=== PATIENT | female | born 1945 | race Caucasian/White ===

== ENCOUNTER 2023-04-02 06:11 | Inpatient (IN) | payer OTHER, BC ==
[~2023-04-02] VITALS: Ht 157.5 cm; Wt 72.6 kg
[2023-04-02 06:23] VITALS: BP_SYST 147; PULSE 74; RESP 16; TEMP 97.9; O2SAT 97
[2023-04-02 07:22] LABS: BASOPHILS # (AUTO) 0.1 K/uL (0.0-0.2); BASOPHILS % (AUTO) 0.6 % (0.0-2.0); EOSINOPHILS # (AUTO) 0.1 K/uL (0.0-0.4); EOSINOPHILS % (AUTO) 0.8 % (0.0-4.0); HEMATOCRIT 36.4 % (36-48); HEMOGLOBIN 12.6 g/dL (12.0-16.0); LYMPHOCYTES # (AUTO) 0.7 K/uL (1.0-5.5); LYMPHOCYTES % (AUTO) 6.6 % (20.5-51.5); MEAN CORPUSCULAR HEMOGLOBIN 33 pg (27-31); MEAN CORPUSCULAR HGB CONC 35 % (32-36); MEAN CORPUSCULAR VOLUME 96 fL (79.0-98.0); MONOCYTES # (AUTO) 0.7 K/uL (0.0-1.0); NEUTROPHILS # (AUTO) 8.5 K/uL (1.8-7.7); PLATELET COUNT (AUTO) 295 K/uL (130-430); RED BLOOD CELL COUNT(AUTO) 3.78 MIL/uL (4.2-6.2); RED CELL DISTRIBUTION WIDTH 13.4 % (9.0-15.0); WHITE BLOOD COUNT (AUTO) 10.1 K/uL (4.8-10.8)
[2023-04-02 07:34] LABS: ANION GAP 11 (5-15); CALCIUM 8.6 mg/dL (8.4-11.0); CARBON DIOXIDE 23 mmol/L (23-29); CHLORIDE 99 mmol/L (98-107); CREATININE 0.88 mg/dL (0.55-1.30); GLUCOSE 118 mg/dL (74-106); POTASSIUM 3.9 mmol/L (3.5-5.1); SODIUM SERUM 133 mmol/L (136-145); UREA NITROGEN, BLOOD 11 mg/dL (8-21)
[2023-04-02 07:38] LABS: ALANINE AMINOTRANSFERASE 10 U/L (12-78); ALBUMIN 3.3 g/dL (3.4-4.8); ASPARTATE AMINOTRANSFERASE 12 U/L (10-37); TOTAL BILIRUBIN 0.7 mg/dL (0.0-1.0); TOTAL PROTEIN, SERUM 7.6 g/dL (6.4-8.3)
[2023-04-02 08:11] LABS: BILIRUBIN,URINE NEGATIVE (NEGATIVE); BLOOD, URINE NEGATIVE (NEGATIVE); CLARITY/URINE CLEAR (CLEAR); COLOR,URINE YELLOW (YELLOW); GLUCOSE,URINE NEGATIVE (NEGATIVE); KETONES,URINE TRACE (NEGATIVE); LEUKOCYTE ESTERASE ,URINE NEGATIVE (NEGATIVE); NITRITE, URINE NEGATIVE (NEGATIVE); PH,URINE 5.5 (5.0-8.0); PROTEIN URINE NEGATIVE (NEGATIVE); UROBILINOGEN,URINE 0.2 (0.2-1.0)
[2023-04-02] MEDS ORDERED: NACL 0.9% 1,000 ML IV ONE (08:15)
[2023-04-02] MEDS ORDERED: MORPHINE 4 MG INJ. 4 MG/ML VIAL IVP ONE (08:15)
[2023-04-02] MEDS ORDERED: ONDANSETRON HCL 4 MG/2 ML VIAL IVP ONE (08:15)
[2023-04-02] MEDS ORDERED: metroNIDAZOLE 500 mg/NS 100 ML IV ONE ×2 (10:15)
[2023-04-02] MEDS: D5/0.45 NS 1,000 ML IV SCH ×2 (11:07→20:45)
[2023-04-02] MEDS ORDERED: PIPERACILLIN/TAZOBACTAM 3.375 GM/VIAL (ZOSYN) IV ONE (11:16)
[2023-04-02] MEDS ORDERED: PIPERACILLIN/TAZO 3.375 GM in NS 50 ML IV SCH (12:00)
[2023-04-02] MEDS ORDERED: FOLIC ACID 1 MG, THIAMINE HCL 100 MG, MAGNESIUM SULFATE 1 GM, MVI 10 ML in NACL 0.9% 1,... IV SCH (12:45)
[2023-04-02] MEDS ORDERED: ACETAMINOPHEN 325 MG TABLET PO PRN (12:45)
[2023-04-02] MEDS ORDERED: LORazepam 2 MG/ML VIAL IVP PRN (13:00)
[2023-04-02] MEDS ORDERED: TEMAZEPAM 15 MG CAPSULE PO PRN (13:45)
[2023-04-02] MEDS ORDERED: NALOXONE HCL 0.4 MG/ML AMP (NARCAN) IVP PRN (13:45)
[2023-04-02] MEDS ORDERED: THIAMINE HCL 100 MG/ML VIAL ONE (14:48)
[2023-04-02] MEDS ORDERED: MAGNESIUM SULFATE 1 GM/2 ML VIAL ONE (14:48)
[2023-04-02] MEDS ORDERED: FOLIC ACID 5 MG/ML VIAL IV ONE (14:50)
[2023-04-02] MEDS ORDERED: MVI 10 ML VIAL IV ONE (14:50)
[2023-04-02] MEDS: ONDANSETRON HCL 4 MG/2 ML VIAL IVP PRN ×2 (14:51→19:28)
[2023-04-02] MEDS: MORPHINE 4 MG INJ. 4 MG/ML VIAL IVP PRN (15:04)
[2023-04-02] MEDS: THIAMINE HCL 100 MG, MAGNESIUM SULFATE 1 GM in NS 100 ML IV SCH (15:05)
[2023-04-02] MEDS: FOLIC ACID 1 MG, MVI 10 ML in NACL 0.9% 1,000 ML IV SCH (15:05)
[2023-04-02 17:39] VITALS: BP_SYST 107; PULSE 84; RESP 18; TEMP 97.6; O2SAT 98
[2023-04-02] MEDS: PIPERACILLIN/TAZO 3.375 GM in NS 50 ML IV SCH (18:42)
[2023-04-02 19:00] VITALS: BP_SYST 109; PULSE 78; RESP 16; TEMP 97.3; O2SAT 98
[2023-04-02] MEDS: MORPHINE 2 MG/ML INJ. SYRINGE IVP PRN (19:07)
[2023-04-02 20:00] VITALS: BP_SYST 109; PULSE 78; RESP 16; TEMP 97.3; O2SAT 98
[2023-04-03] MEDS: PIPERACILLIN/TAZO 3.375 GM in NS 50 ML IV SCH ×4 (00:01→18:18)
[2023-04-03] MEDS: MORPHINE 2 MG/ML INJ. SYRINGE IVP PRN ×3 (00:19→08:53)
[2023-04-03 04:25] LABS: ERYTHROCYTE SEDIMENTATION RATE 8 MM/HR (0-20)
[2023-04-03 05:02] LABS: ALANINE AMINOTRANSFERASE 4 U/L (12-78); ALBUMIN 2.9 g/dL (3.4-4.8); ANION GAP 7 (5-15); ASPARTATE AMINOTRANSFERASE 11 U/L (10-37); CALCIUM 8.1 mg/dL (8.4-11.0); CARBON DIOXIDE 27 mmol/L (23-29); CHLORIDE 104 mmol/L (98-107); CHOLESTEROL 142 mg/dL (<200); CREATININE 1.02 mg/dL (0.55-1.30); GLUCOSE 99 mg/dL (74-106); HDL CHOLESTEROL 41 mg/dL (>55); LIPASE 39 U/L (73-393); POTASSIUM 4.1 mmol/L (3.5-5.1); SODIUM SERUM 138 mmol/L (136-145); TOTAL BILIRUBIN 0.9 mg/dL (0.0-1.0); TOTAL PROTEIN, SERUM 6.5 g/dL (6.4-8.3); TRIGLYCERIDES 93 mg/dL (30-150); UREA NITROGEN, BLOOD 6 mg/dL (8-21)
[2023-04-03 05:08] LABS: BASOPHILS % (AUTO) 0.6 % (0.0-2.0); EOSINOPHILS # (AUTO) 0.1 K/uL (0.0-0.4); EOSINOPHILS % (AUTO) 2.1 % (0.0-4.0); HEMATOCRIT 32.2 % (36-48); HEMOGLOBIN 11.2 g/dL (12.0-16.0); LYMPHOCYTES % (AUTO) 15.4 % (20.5-51.5); MEAN CORPUSCULAR HEMOGLOBIN 34 pg (27-31); MEAN CORPUSCULAR HGB CONC 35 % (32-36); MEAN CORPUSCULAR VOLUME 97 fL (79.0-98.0); MONOCYTES # (AUTO) 0.6 K/uL (0.0-1.0); NEUTROPHILS # (AUTO) 4.8 K/uL (1.8-7.7); NEUTROPHILS % (AUTO) 72.9 % (40.0-70.0); PLATELET COUNT (AUTO) 249 K/uL (130-430); RED BLOOD CELL COUNT(AUTO) 3.34 MIL/uL (4.2-6.2); RED CELL DISTRIBUTION WIDTH 13.2 % (9.0-15.0); WHITE BLOOD COUNT (AUTO) 6.6 K/uL (4.8-10.8)
[2023-04-03] MEDS: D5/0.45 NS 1,000 ML IV SCH ×2 (05:13→16:45)
[2023-04-03 08:00] VITALS: BP_SYST 130; PULSE 77; RESP 20; TEMP 98; O2SAT 96; O2SAT 98
[2023-04-03] MEDS: THIAMINE HCL 100 MG TABLET PO SCH (08:51)
[2023-04-03] MEDS: MULTIVITAMINS TAB 1 TABLET PO SCH (08:52)
[2023-04-03 12:00] VITALS: BP_SYST 114; PULSE 82; RESP 20; TEMP 100; O2SAT 94
[2023-04-03] MEDS: MORPHINE 4 MG INJ. 4 MG/ML VIAL IVP PRN ×2 (13:08→18:20)
[2023-04-03] MEDS: FOLIC ACID 1 MG, MVI 10 ML in NACL 0.9% 1,000 ML IV SCH (13:31)
[2023-04-03] MEDS: THIAMINE HCL 100 MG, MAGNESIUM SULFATE 1 GM in NS 100 ML IV SCH (13:31)
[2023-04-03 16:00] VITALS: BP_SYST 115; PULSE 82; RESP 20; TEMP 99.5; O2SAT 96
[2023-04-03 20:00] VITALS: O2SAT 96
[2023-04-04] VITALS (7 sets, daily range): BP systolic 103–142; PULSE 66–77; RESP 18; TEMP 97–98.2; O2SAT 92–100
[2023-04-04] MEDS: PIPERACILLIN/TAZO 3.375 GM in NS 50 ML IV SCH ×4 (01:14→18:21)
[2023-04-04] MEDS: MORPHINE 2 MG/ML INJ. SYRINGE IVP PRN ×3 (01:15→22:38)
[2023-04-04] MEDS: D5/0.45 NS 1,000 ML IV SCH ×2 (02:45→12:59)
[2023-04-04 04:55] LABS: ERYTHROCYTE SEDIMENTATION RATE 30 MM/HR (0-20)
[2023-04-04 05:13] LABS: BASOPHILS % (AUTO) 0.4 % (0.0-2.0); EOSINOPHILS # (AUTO) 0.3 K/uL (0.0-0.4); EOSINOPHILS % (AUTO) 2.9 % (0.0-4.0); HEMATOCRIT 29.6 % (36-48); HEMOGLOBIN 10.5 g/dL (12.0-16.0); LYMPHOCYTES % (AUTO) 11.1 % (20.5-51.5); MEAN CORPUSCULAR HEMOGLOBIN 34 pg (27-31); MEAN CORPUSCULAR HGB CONC 35 % (32-36); MEAN CORPUSCULAR VOLUME 97 fL (79.0-98.0); MONOCYTES # (AUTO) 0.8 K/uL (0.0-1.0); MONOCYTES % (AUTO) 9.4 % (1.7-9.3); NEUTROPHILS # (AUTO) 6.6 K/uL (1.8-7.7); NEUTROPHILS % (AUTO) 76.2 % (40.0-70.0); PLATELET COUNT (AUTO) 237 K/uL (130-430); RED BLOOD CELL COUNT(AUTO) 3.06 MIL/uL (4.2-6.2); RED CELL DISTRIBUTION WIDTH 13.7 % (9.0-15.0); WHITE BLOOD COUNT (AUTO) 8.7 K/uL (4.8-10.8)
[2023-04-04 05:23] LABS: ALANINE AMINOTRANSFERASE 7 U/L (12-78); ALBUMIN 2.6 g/dL (3.4-4.8); ANION GAP 8 (5-15); ASPARTATE AMINOTRANSFERASE 11 U/L (10-37); CALCIUM 7.7 mg/dL (8.4-11.0); CARBON DIOXIDE 26 mmol/L (23-29); CHLORIDE 101 mmol/L (98-107); CREATININE 0.93 mg/dL (0.55-1.30); GLUCOSE 98 mg/dL (74-106); POTASSIUM 3.8 mmol/L (3.5-5.1); SODIUM SERUM 135 mmol/L (136-145); TOTAL PROTEIN, SERUM 6.1 g/dL (6.4-8.3); UREA NITROGEN, BLOOD 6 mg/dL (8-21)
[2023-04-04] MEDS ORDERED: DIATR MEGLU/DIATRIZ SOD 30 ML SOLUTION PO ONE (07:31)
[2023-04-04] MEDS: THIAMINE HCL 100 MG TABLET PO SCH (09:54)
[2023-04-04] MEDS: MULTIVITAMINS TAB 1 TABLET PO SCH (09:54)
[2023-04-04] MEDS: MORPHINE 4 MG INJ. 4 MG/ML VIAL IVP PRN ×2 (10:44→15:34)
[2023-04-04] MEDS: FOLIC ACID 1 MG, MVI 10 ML in NACL 0.9% 1,000 ML IV SCH (13:24)
[2023-04-04] MEDS: THIAMINE HCL 100 MG, MAGNESIUM SULFATE 1 GM in NS 100 ML IV SCH (13:27)
[2023-04-05] VITALS: BP_SYST 115; PULSE 74; RESP 18; TEMP 97.2; O2SAT 96
[2023-04-05] MEDS: D5/0.45 NS 1,000 ML IV SCH ×2 (00:01→08:42)
[2023-04-05] MEDS: PIPERACILLIN/TAZO 3.375 GM in NS 50 ML IV SCH ×4 (00:27→23:01)
[2023-04-05 03:25] VITALS: O2SAT 96
[2023-04-05 05:44] LABS: BASOPHILS # (AUTO) 0.1 K/uL (0.0-0.2); EOSINOPHILS # (AUTO) 0.4 K/uL (0.0-0.4); EOSINOPHILS % (AUTO) 4.2 % (0.0-4.0); HEMATOCRIT 32.2 % (36-48); HEMOGLOBIN 11.2 g/dL (12.0-16.0); LYMPHOCYTES # (AUTO) 1.4 K/uL (1.0-5.5); LYMPHOCYTES % (AUTO) 16.9 % (20.5-51.5); MEAN CORPUSCULAR HEMOGLOBIN 34 pg (27-31); MEAN CORPUSCULAR HGB CONC 35 % (32-36); MEAN CORPUSCULAR VOLUME 97 fL (79.0-98.0); MONOCYTES # (AUTO) 0.7 K/uL (0.0-1.0); MONOCYTES % (AUTO) 8.3 % (1.7-9.3); NEUTROPHILS # (AUTO) 5.9 K/uL (1.8-7.7); NEUTROPHILS % (AUTO) 69.6 % (40.0-70.0); PLATELET COUNT (AUTO) 268 K/uL (130-430); RED BLOOD CELL COUNT(AUTO) 3.33 MIL/uL (4.2-6.2); RED CELL DISTRIBUTION WIDTH 13.4 % (9.0-15.0); WHITE BLOOD COUNT (AUTO) 8.5 K/uL (4.8-10.8)
[2023-04-05 06:09] LABS: ANION GAP 8 (5-15); CALCIUM 8.2 mg/dL (8.4-11.0); CARBON DIOXIDE 28 mmol/L (23-29); CHLORIDE 103 mmol/L (98-107); CREATININE 0.88 mg/dL (0.55-1.30); GLUCOSE 93 mg/dL (74-106); POTASSIUM 4.1 mmol/L (3.5-5.1); SODIUM SERUM 139 mmol/L (136-145); UREA NITROGEN, BLOOD 5 mg/dL (8-21)
[2023-04-05 08:18] VITALS: BP_SYST 139; PULSE 73; RESP 20; TEMP 97.7
[2023-04-05] MEDS: THIAMINE HCL 100 MG TABLET PO SCH (08:34)
[2023-04-05] MEDS: MULTIVITAMINS TAB 1 TABLET PO SCH (08:34)
[2023-04-05 10:10] VITALS: O2SAT 97
[2023-04-05] MEDS: FOLIC ACID 1 MG, MVI 10 ML in NACL 0.9% 1,000 ML IV SCH (14:00)
[2023-04-05 16:00] VITALS: BP_SYST 110; PULSE 70; RESP 18; TEMP 97.9; O2SAT 99
[2023-04-05] MEDS ORDERED: metroNIDAZOLE 250 MG TABLET PO ONE (18:00)
[2023-04-05] MEDS: THIAMINE HCL 100 MG, MAGNESIUM SULFATE 1 GM in NS 100 ML IV SCH (19:27)
[2023-04-05 20:00] VITALS: BP_SYST 135; PULSE 75; RESP 18; TEMP 97.5; O2SAT 98
[2023-04-05] MEDS ORDERED: metroNIDAZOLE 500 MG TABLET PO SCH (22:00)
[2023-04-05] MEDS: metroNIDAZOLE 250 MG TABLET PO SCH (22:42)
[2023-04-06] VITALS (7 sets, daily range): BP systolic 101–153; PULSE 69–87; RESP 16–20; TEMP 97.2–99; O2SAT 91–98
[2023-04-06] MEDS: PIPERACILLIN/TAZO 3.375 GM in NS 50 ML IV SCH ×4 (04:58→23:46)
[2023-04-06 05:33] LABS: ALANINE AMINOTRANSFERASE 9 U/L (12-78); ALBUMIN 2.5 g/dL (3.4-4.8); ANION GAP 9 (5-15); ASPARTATE AMINOTRANSFERASE 10 U/L (10-37); BASOPHILS % (AUTO) 0.7 % (0.0-2.0); CALCIUM 7.7 mg/dL (8.4-11.0); CARBON DIOXIDE 27 mmol/L (23-29); CHLORIDE 106 mmol/L (98-107); CREATININE 0.77 mg/dL (0.55-1.30); EOSINOPHILS # (AUTO) 0.3 K/uL (0.0-0.4); EOSINOPHILS % (AUTO) 4.8 % (0.0-4.0); GLUCOSE 94 mg/dL (74-106); HEMATOCRIT 28.3 % (36-48); LYMPHOCYTES # (AUTO) 1.1 K/uL (1.0-5.5); LYMPHOCYTES % (AUTO) 17.7 % (20.5-51.5); MEAN CORPUSCULAR HEMOGLOBIN 34 pg (27-31); MEAN CORPUSCULAR HGB CONC 35 % (32-36); MEAN CORPUSCULAR VOLUME 96 fL (79.0-98.0); MONOCYTES # (AUTO) 0.5 K/uL (0.0-1.0); MONOCYTES % (AUTO) 7.8 % (1.7-9.3); NEUTROPHILS # (AUTO) 4.3 K/uL (1.8-7.7); PLATELET COUNT (AUTO) 230 K/uL (130-430); POTASSIUM 4.2 mmol/L (3.5-5.1); RED BLOOD CELL COUNT(AUTO) 2.96 MIL/uL (4.2-6.2); RED CELL DISTRIBUTION WIDTH 13.2 % (9.0-15.0); SODIUM SERUM 142 mmol/L (136-145); TOTAL BILIRUBIN 0.7 mg/dL (0.0-1.0); TOTAL PROTEIN, SERUM 5.4 g/dL (6.4-8.3); UREA NITROGEN, BLOOD 7 mg/dL (8-21); WHITE BLOOD COUNT (AUTO) 6.2 K/uL (4.8-10.8)
[2023-04-06] MEDS: ONDANSETRON HCL 4 MG/2 ML VIAL IVP PRN (10:38)
[2023-04-06] MEDS: THIAMINE HCL 100 MG TABLET PO SCH (10:39)
[2023-04-06] MEDS: metroNIDAZOLE 250 MG TABLET PO SCH ×4 (10:39→20:59)
[2023-04-06] MEDS: MULTIVITAMINS TAB 1 TABLET PO SCH (10:39)
[2023-04-06] MEDS ORDERED: THIA100T73 PO (11:26)
[2023-04-06] MEDS ORDERED: METR-343 PO (11:26)
[2023-04-06] MEDS ORDERED: MULT400T13 PO (11:26)
[2023-04-06] MEDS ORDERED: AUG875 PO (11:28)
[2023-04-06] MEDS ORDERED: LACT1CAP69 PO (11:29)
[2023-04-06] MEDS: MORPHINE 4 MG INJ. 4 MG/ML VIAL IVP PRN (11:55)
[2023-04-06] MEDS ORDERED: cloNIDine HCL 0.1 MG TABLET PO ONE (12:15)
[2023-04-06] MEDS ORDERED: cloNIDine HCL 0.1 MG TABLET PO PRN (12:15)
[2023-04-06] MEDS: FOLIC ACID 1 MG, MVI 10 ML in NACL 0.9% 1,000 ML IV SCH (14:21)
[2023-04-06] MEDS: THIAMINE HCL 100 MG, MAGNESIUM SULFATE 1 GM in NS 100 ML IV SCH (14:22)
[2023-04-07 00:53] VITALS: BP_SYST 118; PULSE 77; RESP 16; TEMP 98.6; O2SAT 96
[2023-04-07 05:33] LABS: BASOPHILS % (AUTO) 0.5 % (0.0-2.0); EOSINOPHILS # (AUTO) 0.1 K/uL (0.0-0.4); EOSINOPHILS % (AUTO) 1.2 % (0.0-4.0); HEMATOCRIT 26.9 % (36-48); HEMOGLOBIN 9.4 g/dL (12.0-16.0); LYMPHOCYTES # (AUTO) 0.9 K/uL (1.0-5.5); LYMPHOCYTES % (AUTO) 10.4 % (20.5-51.5); MEAN CORPUSCULAR HEMOGLOBIN 34 pg (27-31); MEAN CORPUSCULAR HGB CONC 35 % (32-36); MEAN CORPUSCULAR VOLUME 96 fL (79.0-98.0); MONOCYTES # (AUTO) 0.8 K/uL (0.0-1.0); MONOCYTES % (AUTO) 9.1 % (1.7-9.3); NEUTROPHILS # (AUTO) 6.9 K/uL (1.8-7.7); NEUTROPHILS % (AUTO) 78.8 % (40.0-70.0); PLATELET COUNT (AUTO) 222 K/uL (130-430); RED BLOOD CELL COUNT(AUTO) 2.81 MIL/uL (4.2-6.2); RED CELL DISTRIBUTION WIDTH 13.5 % (9.0-15.0); WHITE BLOOD COUNT (AUTO) 8.8 K/uL (4.8-10.8)
[2023-04-07 05:56] LABS: ALANINE AMINOTRANSFERASE 6 U/L (12-78); ALBUMIN 2.4 g/dL (3.4-4.8); ANION GAP 10 (5-15); ASPARTATE AMINOTRANSFERASE 11 U/L (10-37); CALCIUM 7.7 mg/dL (8.4-11.0); CARBON DIOXIDE 27 mmol/L (23-29); CHLORIDE 101 mmol/L (98-107); CREATININE 0.93 mg/dL (0.55-1.30); GLUCOSE 111 mg/dL (74-106); POTASSIUM 3.7 mmol/L (3.5-5.1); SODIUM SERUM 138 mmol/L (136-145); TOTAL BILIRUBIN 1.1 mg/dL (0.0-1.0); TOTAL PROTEIN, SERUM 5.9 g/dL (6.4-8.3); UREA NITROGEN, BLOOD 9 mg/dL (8-21)
[2023-04-07] MEDS: PIPERACILLIN/TAZO 3.375 GM in NS 50 ML IV SCH (05:59)
[2023-04-07 07:35] LABS: BILIRUBIN,URINE NEGATIVE (NEGATIVE); BLOOD, URINE NEGATIVE (NEGATIVE); CLARITY/URINE Clear (CLEAR); COLOR,URINE YELLOW (YELLOW); GLUCOSE,URINE NEGATIVE (NEGATIVE); NITRITE, URINE NEGATIVE (NEGATIVE); PH,URINE 6.5 (5.0-8.0); PROTEIN URINE NEGATIVE (NEGATIVE)
[2023-04-07 07:41] LABS: KETONES,URINE NEGATIVE (NEGATIVE); LEUKOCYTE ESTERASE ,URINE NEGATIVE (NEGATIVE)
[2023-04-07 08:00] VITALS: BP_SYST 110; PULSE 73; RESP 18; TEMP 96.8; O2SAT 96
[2023-04-07] MEDS: THIAMINE HCL 100 MG TABLET PO SCH (08:35)
[2023-04-07] MEDS: metroNIDAZOLE 250 MG TABLET PO SCH (08:35)
[2023-04-07] MEDS: MULTIVITAMINS TAB 1 TABLET PO SCH (08:35)
[2023-04-07 09:06] VITALS: O2SAT 96
[2023-04-07 11:44] VITALS: BP_SYST 123; PULSE 72; RESP 18; TEMP 97.2; O2SAT 94
[2023-04-07 12:00] VITALS: BP_SYST 123; PULSE 72; RESP 18; TEMP 97.2; O2SAT 94
== END 2023-04-07 12:09 | disposition home or self-care (01) | DRG 392 ==
LOC: SED 06:11 → STU 10:29 → SMU 04-03 12:31
PROVIDERS: ADMIT Internal Medicine; ATTEND Internal Medicine
DX: K57.20 Diverticulitis of large intestine with perforation and abscess without bleeding (principal); E44.0 Moderate protein-calorie malnutrition; N20.0 Calculus of kidney; I10 Essential (primary) hypertension; D64.9 Anemia, unspecified; F10.10 Alcohol abuse, uncomplicated; Y90.9 Presence of alcohol in blood, level not specified; K80.20 Calculus of gallbladder without cholecystitis without obstruction; I70.90 Unspecified atherosclerosis; K44.9 Diaphragmatic hernia without obstruction or gangrene; M17.11 Unilateral primary osteoarthritis, right knee; Z79.82 Long term (current) use of aspirin; Z88.2 Allergy status to sulfonamides; Z79.899 Other long term (current) drug therapy; Z68.29 Body mass index [BMI] 29.0-29.9, adult
CPT/HCPCS: 36415; 71045; 74018; 76376; 76700-TC; 80048; 80053; 80061; 81003; 83605; 83690; 83735; 84100; 85025; 85651-TC; 87040; 93005; 93306; 97116-GP; 97530-GP; 99291; G0378; J2270; J2405; J2543; J3411; J3475; J3490; J7030; Q9964

== ENCOUNTER 2023-09-05 06:55 | Outpatient (CLI) | payer OTHER, BC ==
[~2023-09-05 06:55] MED LIST: AUG875 PO; LACT1CAP69 PO; METR-343 PO; MULT400T13 PO; THIA100T73 PO
== END 2023-09-05 18:45 | disposition home or self-care (01) ==
LOC: SNM 06:55
PROVIDERS: ATTEND Internal Medicine
DX: R19.04 Left lower quadrant abdominal swelling, mass and lump (principal)
CPT/HCPCS: 78306; A9503

== ENCOUNTER 2023-12-30 18:39 | Emergency (ER) | payer OTHER, BC ==
[~2023-12-30] VITALS: Ht 157.5 cm; Wt 62.1 kg
[2023-12-30 18:44] VITALS: BP_SYST 138; PULSE 78; RESP 19; TEMP 97.9; O2SAT 97
[2023-12-30] MEDS ORDERED: LIDO1ADH91 ID (19:43)
[2023-12-30 20:09] VITALS: BP_SYST 138; PULSE 78; RESP 19; TEMP 97.9; O2SAT 97
== END 2023-12-30 20:09 | disposition home or self-care (01) ==
LOC: SED 18:39
DX: S22.32XA Fracture of one rib, left side, initial encounter for closed fracture (principal); I10 Essential (primary) hypertension; Z88.2 Allergy status to sulfonamides; W22.8XXA Striking against or struck by other objects, initial encounter; Y93.89 Activity, other specified; Y92.89 Other specified places as the place of occurrence of the external cause; Y99.8 Other external cause status
CPT/HCPCS: 71100; 99283

== ENCOUNTER 2024-04-25 14:40 | Outpatient (CLI) | payer OTHER, BC ==
[~2024-04-25 14:40] MED LIST changes: +LIDO1ADH91 ID
[2024-04-25 15:23] LABS: BILIRUBIN,URINE NEGATIVE (NEGATIVE); BLOOD, URINE NEGATIVE (NEGATIVE); CLARITY/URINE CLEAR (CLEAR); COLOR,URINE YELLOW (YELLOW); GLUCOSE,URINE NEGATIVE (NEGATIVE); KETONES,URINE NEGATIVE (NEGATIVE); LEUKOCYTE ESTERASE ,URINE NEGATIVE (NEGATIVE); NITRITE, URINE NEGATIVE (NEGATIVE); PH,URINE 6.5 (5.0-8.0); PROTEIN URINE NEGATIVE (NEGATIVE); UROBILINOGEN,URINE 0.2 (0.2-1.0)
== END 2024-04-25 18:48 | disposition home or self-care (01) ==
LOC: SUS 14:40
PROVIDERS: ATTEND Internal Medicine
DX: N39.0 Urinary tract infection, site not specified (principal); N13.30 Unspecified hydronephrosis; R39.15 Urgency of urination
CPT/HCPCS: 76770; 81001; 81003; 87086